=== PATIENT | female | born 1980 | race Two or more races ===

== ENCOUNTER 2025-04-17 15:53 | Emergency (ER) | payer OTHER ==
[~2025-04-17] VITALS: Ht 149.9 cm; Wt 73.9 kg
[2025-04-17] MEDS ORDERED: COZAAR25 MG (17:01)
[2025-04-17] MEDS ORDERED: HYDROXYZIN10 MG/5 ML (17:02)
[2025-04-17] MEDS ORDERED: ARBLI10 MG/1 ML (17:03)
[2025-04-17] MEDS ORDERED: RIBOFLAVIN400 MG (17:04)
[2025-04-17] MEDS ORDERED: CETIRIZINE1 MG/1 ML (17:04)
[2025-04-17] MEDS ORDERED: MONTELUKAST SODI4 M1 (17:04)
[2025-04-17] MEDS ORDERED: TOPROL XL25 M1 (17:05)
[2025-04-17] MEDS ORDERED: TREXIMET 85-501 EACH (17:05)
[2025-04-17] MEDS ORDERED: FAMOTIDINE/PF 20 MG/2 ML VIAL IV ONE (17:45)
[2025-04-17] MEDS ORDERED: IPRATROPIUM/ALBUTEROL SULFATE 3 ML AMPUL.NEB IH SCH (17:45)
[2025-04-17] MEDS ORDERED: GUAIFENESIN/DEXTROMETHORPHAN 100MG/10ML BLIST.PACK PO ONE (17:45)
[2025-04-17] MEDS ORDERED: FAMOTIDINE/PF 20 MG/2 ML VIAL ONE (17:46)
[2025-04-17] MEDS ORDERED: GUAIFEN/DEXTROMETHORPHAN/PE 10 ML BLIST.PACK PO ONE (17:46)
[2025-04-17] MEDS ORDERED: METHYLPREDNISOLONE SOD SUCC 125 MG VIAL ONE (18:16)
[2025-04-17] MEDS ORDERED: IPRATROPIUM/ALBUTEROL SULFATE 3 ML AMPUL.NEB IH ONE (18:19)
[2025-04-17 18:23] LABS: BASO % 0.5 % (0.1-1.2); EOS # 0.18 (0.04-0.54); EOS % 1.9 % (0.7-7.0); LYMPH # 3.09 (1.18-3.74); LYMPH % 32.7 % (19.3-53.1); MEAN PLATELET VOLUME 9.10 fl (9.4-12.4); MONO # 0.68 (0.24-0.82); MONO % 7.2 % (4.7-12.5); NEUT # 5.43 (1.56-6.13); NEUT % 57.4 % (34.0-71.1); RED CELL DISTRIBUTION WIDTH 14.0 % (11.6-14.4)
[2025-04-17] MEDS ORDERED: METHYLPREDNISOLONE SOD SUCC 125 MG VIAL IM ONE (18:30)
[2025-04-17 18:46] LABS: ALT/SGPT 70.0 U/L (12-78); AST/SGOT 31.0 U/L (15-37); BILIRUBIN TOTAL 0.19 mg/dL (0.3-1.2); BUN CREA RATIO 19.0 (7.0-25.0); CREATININE SERUM 0.78 mg/dL (0.55-1.02); GFR 79.51; GLOBULINA 3.4 G/DL (2.4-3.5); GLUCOSE FASTING 98.0 mg/dL (65-100); OSMOLALITY SERUM 286.0 MOSM/KG (275-295)
[2025-04-17 19:00] LABS: COVID-19 AG NEGATIVE (NEGATIVE)
[2025-04-17] MEDS ORDERED: ALBUTEROL1.25 MG/3 IH (19:58)
[2025-04-17] MEDS ORDERED: ZITHROMAX500 MG PO (19:58)
[2025-04-17] MEDS ORDERED: PULMICORT1 MG/2 ML IH (19:58)
[2025-04-17] MEDS ORDERED: IPRATROPIU0.2 MG/1 M IH (19:58)
[2025-04-17] MEDS ORDERED: SINGULAIR10 MG PO (19:58)
[2025-04-17] MEDS ORDERED: BENZONATATE200 M1 PO (19:58)
[2025-04-17] MEDS ORDERED: HYDROCODONE/CHLORPHEN P-STIREX 5 ML ML PO ONE (20:00)
== END 2025-04-17 20:12 ==
LOC: ER 15:53
PROVIDERS: Preventive Medicine Public Health & General Preventive Medicine
DX: J45.909 Unspecified asthma, uncomplicated (principal); E11.9 Type 2 diabetes mellitus without complications; Z79.84 Long term (current) use of oral hypoglycemic drugs; I10 Essential (primary) hypertension; Z20.822 Contact with and (suspected) exposure to COVID-19; Z88.8 Allergy status to other drugs, medicaments and biological substances